=== PATIENT | female | born 1995 | race Caucasian/White ===

== ENCOUNTER 2017-03-20 01:22 | Inpatient (IN) | payer OTHER ==
[2017-03-20] VITALS (17 sets, daily range): BP systolic 92–123; BP diastolic 23–66; PULSE 90–123; RESP 16–18; TEMP 98.6–100.8; O2SAT 96–100
[2017-03-20 01:51] LABS: AUTOMATED NEUTROPHIL # 9.1 TH/MM3 (1.8-7.7); BASOPHIL # 0.1 TH/MM3 (0-0.2); BASOPHIL % 0.5 % (0.0-2.0); EOSINOPHIL # 0.1 TH/MM3 (0-0.4); EOSINOPHIL % 0.4 % (0.0-4.0); HEMO FLAGS DIFF FINAL; I-STAT POTASSIUM 3.4 MMOL/L (3.5-4.9); I-STAT SODIUM 144 MMOL/L (138-146); LYMPH % 23.3 % (9.0-44.0); LYMPHOCYTE # 3.1 TH/MM3 (1.0-4.8); MEAN CELL VOLUME 93.1 FL (80.0-100.0); MEAN CORPUSCULAR HEMOGLOBIN 31.7 PG (27.0-34.0); MEAN CORPUSCULAR HGB CONC 34.1 % (32.0-36.0); MONO % 7.7 % (0.0-8.0); NEUT % 68.1 % (16.0-70.0); PLATELET COUNT 212 TH/MM3 (150-450); RED BLOOD COUNT 4.51 MIL/MM3 (4.00-5.30); WHITE BLOOD COUNT 13.3 TH/MM3 (4.0-11.0)
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
[2017-03-20 02:11] LABS: BETA HCG QUANT LESS THAN 1 MIU/ML (0-5)
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
[2017-03-20 02:13] LABS: ALCOHOL 293 MG/DL (0-5)
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
[2017-03-20] MEDS ORDERED: fentaNYL DRIP 250 ML IV PRN (02:16)
[2017-03-20] MEDS ORDERED: PROPOFOL 1000 MG/100 ML INJ 100 ML IV PRN (02:16)
[2017-03-20] MEDS ORDERED: DIPHTH/TETANUS/ACEL PERTUSSIS (BOOSTER) 0.5 ML VIAL/PFS IM ONE (02:17)
[2017-03-20 02:22] LABS: APTT (PATIENT) 21.9 SEC (24.3-30.1); INTERNATIONAL NORMALIZED RATIO 1.1 RATIO; PROTHROMBIN TIME - PATIENT 11.8 SEC (9.8-11.6)
[2017-03-20] MEDS ORDERED: ONDANSETRON HCL 4 MG/2 ML VIAL IV PRN (02:30)
[2017-03-20] MEDS ORDERED: NALOXONE HCL 0.4 MG/ML AMP IV PRN (02:30)
[2017-03-20] MEDS ORDERED: levETIRAcetam INJ 500 MG in SODIUM CHLORIDE 0.9% INJ 100 ML IV SCH (02:30)
[2017-03-20] MEDS ORDERED: Post-op Orders (for Pharmacy) MISC XX ONE (02:30)
[2017-03-20] MEDS ORDERED: SODIUM CHLORIDE 0.9% FLUSH 10 ML FLUSH IV FLUSH PRN (02:30)
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
[2017-03-20] MEDS ORDERED: fentaNYL 2,500 MCG/NS 250 ML IV PRN (02:45)
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
[2017-03-20] MEDS: SODIUM CHLOR 0.9% 1000 ML INJ 1,000 ML IV SCH ×2 (02:46→12:45)
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
[2017-03-20] MEDS ORDERED: IOHEXOL 350 MG/ML 10 ML VIAL (for RAD DIAG) IVCONTRAST ONE (03:12)
[2017-03-20 03:29] LABS: BLOOD GAS BASE EXCESS -5.5 mmol/L (-2-2); BLOOD GAS HCO3 18 mmol/L (22-26); BLOOD GAS METHEMOGLOBIN 0.9 % (0-2); BLOOD GAS O2 HGB SATURATION 98 % (90-100); BLOOD GAS OXYGEN CONTENT 17.9 Vol % (12.0-20.0); BLOOD GAS PCO2 30 mmHg (38-42); BLOOD GAS PO2 543 mmHg (61-120); CRITICAL VALUE NO; DRAW SITE RT BRACHIAL; FIO2 100 %; NUMBER OF ARTERIAL PUNCTURES 1; OXYGEN DEVICE VENTILATOR; STAT NO; TEMP CORR TO 98.6
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
[2017-03-20] MEDS: levETIRAcetam INJ 500 MG in SODIUM CHLORIDE 0.9% INJ 100 ML IV SCH ×2 (04:27→14:01)
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
[2017-03-20] MEDS ORDERED: PANTOPRAZOLE SODIUM 40 MG VIAL IV SCH (06:00)
[2017-03-20] MEDS: PROPOFOL 1000 MG/100 ML IV PRN ×2 (06:06→17:19)
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
[2017-03-20] MEDS: CHLORHEXIDINE 0.12% (ORAL KIT) 15 ML CUP MT SCH ×2 (07:30→20:00)
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
[2017-03-20] MEDS ORDERED: SODIUM PHOSPHATE INJ 30 MMOL in SODIUM CHLOR 0.9% 250 ML INJ 240 ML IV PRN (08:00)
[2017-03-20] MEDS ORDERED: MAGNESIUM OXIDE 400 MG TAB PO PRN (08:00)
[2017-03-20] MEDS ORDERED: POTASSIUM PHOSPHATE MONOBASIC 500 MG TAB PO/TUBE PRN (08:00)
[2017-03-20] MEDS ORDERED: POTASSIUM PHOSPHATE INJ 30 MMOL in SODIUM CHLOR 0.9% 250 ML INJ 250 ML IV PRN (08:00)
[2017-03-20] MEDS ORDERED: MAGNESIUM SULFATE INJ 4 GM in SODIUM CHLORIDE 0.9% INJ 92 ML IV PRN (08:00)
[2017-03-20] MEDS ORDERED: POTASSIUM CHLOR 40 MEQ PREMIX 100 ML IV-CENTRAL PRN ×2 (08:00)
[2017-03-20] MEDS ORDERED: MAGNESIUM SULFATE INJ 2 GM in SODIUM CHLORIDE 0.9% INJ 96 ML IV PRN (08:00)
[2017-03-20] MEDS ORDERED: POTASSIUM CHLOR 20 MEQ PREMIX 100 ML IV PRN (08:00)
[2017-03-20] MEDS ORDERED: POTASSIUM CHLORIDE 25 MEQ EFFERVESCENT TAB PO PRN (08:00)
[2017-03-20] MEDS ORDERED: POTASSIUM PHOSPHATE MONOBASIC 500 MG TAB PO PRN (08:00)
[2017-03-20] MEDS ORDERED: BISACODYL 10 MG SUPP RECTAL PRN (08:00)
[2017-03-20] MEDS ORDERED: RESP: ALBUTEROL 2.5 MG/IPRATROPIUM 0.5 MG NEB (PRN) NEB (08:00)
[2017-03-20] MEDS ORDERED: DOCUSATE SODIUM 100 MG CAP PO SCH (09:00)
--- NOTE | 2017-03-20 10:28 | RADRPT ---
EXAM DATE/TIME: 03/20/2017 09:46 [facility] COMPARISON: CHEST SINGLE AP, March 20, 2017, 1:32. INDICATIONS : Shortness of breath. MEDICAL HISTORY : Non-responsive. SURGICAL HISTORY : Non-responsive. ENCOUNTER: Subsequent ACUITY: 1 day PAIN SCORE: Non-responsive. LOCATION: Bilateral chest FINDINGS: AP nasogastric tube are in good position. The lungs are clear. The heart and pulmonary vascularity a re normal. The portion of the bony skeleton visualized is unremarkable. CONCLUSION: Stable chest. Francisco Jim MD FACR on March 20, 2017 at 10:26 Board Certified Radiologist. This report was verified electronically.
[2017-03-20] MEDS: SODIUM CHLORIDE 0.9% FLUSH 10 ML FLUSH IV FLUSH SCH ×2 (11:05→20:23)
[2017-03-20] MEDS: DOCUSATE SODIUM 50 MG/SENNA 8.6 MG TAB PO SCH ×2 (11:06→20:23)
[2017-03-20] MEDS: LACTULOSE SYRUP 20 GM/30 ML CUP PO SCH (11:06)
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
[2017-03-20 18:14] LABS: ALT (GPT) 60 U/L (10-53); ANION GAP 16 MEQ/L (5-15); AST (GOT) 105 U/L (15-37); BLOOD UREA NITROGEN 3 MG/DL (7-18); CHLORIDE 110 MEQ/L (98-107); GLOMERULAR FILTRATION RATE 47 ML/MIN (>89); MAGNESIUM 2.5 MG/DL (1.5-2.5); POTASSIUM 3.6 MEQ/L (3.5-5.1); SODIUM (NA) 140 MEQ/L (136-145)
[2017-03-20 18:17] LABS: ALKALINE PHOSPHATASE 73 U/L (45-117); TOTAL BILIRUBIN ADULT 0.3 MG/DL (0.2-1.0)
--- NOTE | 2017-03-20 19:04 | RADRPT ---
EXAM DATE/TIME: 03/20/2017 16:27 [facility] COMPARISON: CT BRAIN W/O CONTRAST, March 20, 2017, 1:46. INDICATIONS : Traumatic brain injury. RADIATION DOSE: 35.18 CTDIvol (mGy) MEDICAL HISTORY : Non-responsive. SURGICAL HISTORY : Non-responsive. ENCOUNTER: Initial ACUITY: 1 day PAIN SCALE: Non-responsive LOCATION: Cranial TECHNIQUE: Multiple contiguous axial images were obtained of the head. Using automated exposure control and adjustment of the mA and/or kV according to patient size, radiation dose was kept as low as reasonably achievable to obtain optimal diagnostic quality images. DICOM format image data is av ailable electronically for review and comparison. FINDINGS: There continues to be increased density seen in the fourth ventricle likely related to focal hemorrhage. There also appears to be a small area of focal hemorrhage in the right ambient cis tern. There is subarachnoid hemorrhage. There is suggestion of small areas of subarachnoid hemorrha ge seen over the frontal lobes bilaterally. There is a small area of suspected parenchymal hemorrhag e at the inferior right frontal lobe. Significant midline shift is not seen. The ventricles and jessie ical sulci are within normal limits. The basal cisterns are open. CONCLUSION: Persistent suspected small area of interventricular hemorrhage at the fourth ventricl e and subarachnoid hemorrhage seen at the right ambient cistern and likely over the frontal lobes. T here is also a small area of parenchymal hemorrhage seen at the right frontal lobe. Significant mass effect is not seen. Alhaji Mclean MD on March 20, 2017 at 18:21 Board Certified Radiologist. This report was verified electronically.
[2017-03-20 19:41] LABS: HEMATOCRIT 36.2 % (35.0-46.0); MEAN CELL VOLUME 91.9 FL (80.0-100.0); MEAN CORPUSCULAR HEMOGLOBIN 30.7 PG (27.0-34.0); MEAN CORPUSCULAR HGB CONC 33.4 % (32.0-36.0); PLATELET COUNT 130 TH/MM3 (150-450); RED BLOOD COUNT 3.94 MIL/MM3 (4.00-5.30); RED CELL DISTRIBUTION WIDTH 13.3 % (11.6-17.2); REVIEW FLAG FINAL; WHITE BLOOD COUNT 8.2 TH/MM3 (4.0-11.0)
[2017-03-20] MEDS ORDERED: ACETAMINOPHEN 1000 MG/100 ML VIAL IV PRN (19:45)
[2017-03-20] MEDS: REMOVE OLD PATCH T-DERMAL SCH (20:00)
[2017-03-20] MEDS ORDERED: fentaNYL 25 MCG/HR PATCH T-DERMAL SCH (20:00)
[2017-03-20 20:16] LABS: ALKALINE PHOSPHATASE 62 U/L (45-117); ALT (GPT) 55 U/L (10-53); ANION GAP 8 MEQ/L (5-15); AST (GOT) 118 U/L (15-37); BICARBONATE 24.3 MEQ/L (21.0-32.0); BLOOD UREA NITROGEN 5 MG/DL (7-18); CHLORIDE 112 MEQ/L (98-107); GLOMERULAR FILTRATION RATE 80 ML/MIN (>89); MAGNESIUM 1.8 MG/DL (1.5-2.5); POTASSIUM 3.3 MEQ/L (3.5-5.1); SODIUM (NA) 144 MEQ/L (136-145)
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
[2017-03-20] MEDS: RESP: ALBUTEROL 2.5 MG/IPRATROPIUM 0.5 MG NEB (SCH) NEB ×2 (21:16→23:31)
[2017-03-20] MEDS: POTASSIUM CHLOR 20 MEQ PREMIX 100 ML IV PRN (22:21)
[2017-03-21] VITALS (11 sets, daily range): BP systolic 98–132; BP diastolic 59–82; PULSE 77–133; RESP 16–21; TEMP 97.7–99; O2SAT 95–100
[2017-03-21] MEDS: POTASSIUM CHLOR 20 MEQ PREMIX 100 ML IV PRN (00:50)
[2017-03-21] MEDS: RESP: ALBUTEROL 2.5 MG/IPRATROPIUM 0.5 MG NEB (SCH) NEB ×3 (03:45→12:37)
[2017-03-21] MEDS: levETIRAcetam INJ 500 MG in SODIUM CHLORIDE 0.9% INJ 100 ML IV SCH ×2 (04:45→15:20)
[2017-03-21 05:33] LABS: AUTOMATED NEUTROPHIL # 5.3 TH/MM3 (1.8-7.7); BASOPHIL % 0.3 % (0.0-2.0); EOSINOPHIL % 0.3 % (0.0-4.0); HEMATOCRIT 32.6 % (35.0-46.0); HEMO FLAGS DIFF FINAL; LYMPH % 8.8 % (9.0-44.0); LYMPHOCYTE # 0.6 TH/MM3 (1.0-4.8); MEAN CELL VOLUME 92.1 FL (80.0-100.0); MEAN CORPUSCULAR HEMOGLOBIN 30.8 PG (27.0-34.0); MEAN CORPUSCULAR HGB CONC 33.4 % (32.0-36.0); MONO % 14.3 % (0.0-8.0); NEUT % 76.3 % (16.0-70.0); PLATELET COUNT 108 TH/MM3 (150-450); RED BLOOD COUNT 3.54 MIL/MM3 (4.00-5.30); RED CELL DISTRIBUTION WIDTH 13.2 % (11.6-17.2)
[2017-03-21 06:01] LABS: BICARBONATE 22.9 MEQ/L (21.0-32.0); POTASSIUM 3.5 MEQ/L (3.5-5.1)
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
[2017-03-21] MEDS: LACTULOSE SYRUP 20 GM/30 ML CUP PO SCH (08:03)
[2017-03-21] MEDS: DOCUSATE SODIUM 50 MG/SENNA 8.6 MG TAB PO SCH ×2 (08:03→20:47)
[2017-03-21] MEDS: SODIUM CHLORIDE 0.9% FLUSH 10 ML FLUSH IV FLUSH SCH ×2 (08:03→20:48)
[2017-03-21] MEDS: oxyCODONE/ACETAMINOPHEN 5 MG/325 MG TAB PO PRN ×5 (08:04→23:54)
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
[2017-03-21] MEDS: METHOCARBAMOL 500 MG TAB PO SCH ×3 (10:25→20:46)
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
[2017-03-21] MEDS ORDERED: HYDROmorphone HCL PF 1 MG/ML VIAL IV PUSH PRN (17:45)
[2017-03-22 01:59] VITALS: O2SAT 98
[2017-03-22] MEDS: levETIRAcetam INJ 500 MG in SODIUM CHLORIDE 0.9% INJ 100 ML IV SCH (03:43)
[2017-03-22] MEDS: oxyCODONE/ACETAMINOPHEN 5 MG/325 MG TAB PO PRN ×5 (04:39→21:33)
[2017-03-22 04:56] VITALS: BP 112/70; PULSE 88; RESP 16; TEMP 98.1; O2SAT 97
[2017-03-22] MEDS: METHOCARBAMOL 500 MG TAB PO SCH ×3 (06:18→21:32)
[2017-03-22] MEDS ORDERED: LACTULOSE SYRUP 20 GM/30 ML CUP PO PRN (08:00)
[2017-03-22 08:57] VITALS: BP 102/62; PULSE 109; RESP 18; TEMP 98; O2SAT 94
[2017-03-22] MEDS: levETIRAcetam 500 MG TAB PO SCH ×2 (08:57→21:32)
[2017-03-22] MEDS: SODIUM CHLORIDE 0.9% FLUSH 10 ML FLUSH IV FLUSH SCH ×2 (08:58→21:31)
[2017-03-22] MEDS: DOCUSATE SODIUM 50 MG/SENNA 8.6 MG TAB PO SCH ×2 (08:59→21:32)
--- NOTE | 2017-03-22 12:13 | HHI.PR ---
Subjective Subjective Notes Ambulated halls yesterday with PT Reports more neck pain today Objective Vitals/I&O Vital Signs Date Time Temp Pulse Resp B/P (MAP) Pulse Ox O2 Delivery O2 Flow Rate FiO2 03/22/17 09:04 Room Air 03/22/17 08:57 98.0 109 18 102/62 (75) 94 03/21/17 12:41 21 Labs Laboratory Tests Test 03/20/17 01:25 03/20/17 02:30 03/20/17 03:15 03/20/17 19:01 Bedside Hemoglobin 14.3 G/DL Bedside Hematocrit 42.0 % Prothrombin Time 11.8 SEC Prothromb Time International Ratio 1.1 RATIO Activated Partial Thromboplast Time 21.9 SEC Bedside Sodium 144 MMOL/L Bedside Potassium 3.4 MMOL/L Bedside Chloride 108 MMOL/L Bedside Blood Urea Nitrogen LESS THAN 3 MG/DL Bedside Creatinine 1.0 MG/DL Bedside Glucose 121 MG/DL Human Chorionic Gonadotropin, Quant LESS THAN 1 MIU/ML Ethyl Alcohol Level 293 MG/DL Urine Opiates Screen NEG Urine Barbiturates Screen NEG Urine Amphetamines Screen NEG Urine Benzodiazepines Screen NEG Urine Cocaine Screen NEG Urine Cannabinoids Screen NEG Blood Gas Puncture Site RT BRACHIAL Blood Gas Patient Temperature 98.6 Blood Gas HCO3 18 mmol/L Blood Gas Base Excess -5.5 mmol/L Blood Gas Oxygen Saturation 98 % Arterial Blood pH 7.41 Arterial Blood Partial Pressure CO2 30 mmHg Arterial Blood Partial Pressure O2 543 mmHg Arterial Blood Oxygen Content 17.9 Vol % Arterial Blood Carboxyhemoglobin 1.0 % Arterial Blood Methemoglobin 0.9 % Blood Gas Hemoglobin 12.0 G/DL Oxygen Delivery Device VENTILATOR Blood Gas Ventilator Setting SEE COMMENT Blood Gas Inspired Oxygen 100 % Blood Urea Nitrogen 5 MG/DL Creatinine 0.64 MG/DL Random Glucose 101 MG/DL Total Protein 6.4 GM/DL Albumin 3.8 GM/DL Calcium Level 8.0 MG/DL Phosphorus Level 3.5 MG/DL Magnesium Level 1.8 MG/DL Alkaline Phosphatase 62 U/L Aspartate Amino Transf (AST/SGOT) 118 U/L Alanine Aminotransferase (ALT/SGPT) 55 U/L Total Bilirubin 1.0 MG/DL Sodium Level 144 MEQ/L Potassium Level 3.3 MEQ/L Chloride Level 112 MEQ/L Carbon Dioxide Level 24.3 MEQ/L Test 03/21/17 04:49 White Blood Count 7.0 TH/MM3 Red Blood Count 3.54 MIL/MM3 Hemoglobin 10.9 GM/DL Hematocrit 32.6 % Mean Corpuscular Volume 92.1 FL Mean Corpuscular Hemoglobin 30.8 PG Mean Corpuscular Hemoglobin Concent 33.4 % Red Cell Distribution Width 13.2 % Platelet Count 108 TH/MM3 Mean Platelet Volume 8.0 FL Neutrophils (%) (Auto) 76.3 % Lymphocytes (%) (Auto) 8.8 % Monocytes (%) (Auto) 14.3 % Eosinophils (%) (Auto) 0.3 % Basophils (%) (Auto) 0.3 % Neutrophils # (Auto) 5.3 TH/MM3 Lymphocytes # (Auto) 0.6 TH/MM3 Monocytes # (Auto) 1.0 TH/MM3 Eosinophils # (Auto) 0.0 TH/MM3 Basophils # (Auto) 0.0 TH/MM3 CBC Comment DIFF FINAL Differential Comment Blood Urea Nitrogen 6 MG/DL Creatinine 0.60 MG/DL Random Glucose 118 MG/DL Calcium Level 7.8 MG/DL Sodium Level 144 MEQ/L Potassium Level 3.5 MEQ/L Chloride Level 112 MEQ/L Carbon Dioxide Level 22.9 MEQ/L Anion Gap 9 MEQ/L Estimat Glomerular Filtration Rate 86 ML/MIN Radiology Last Impressions Cervical Spine X-Ray 03/21/17 0000 Signed Impressions: Service Date/Time: Tuesday, March 21, 2017 13:51 - CONCLUSION: Normal alignment . Faint lucency posterior aspect C5 elements at the base and one in the lamina toward the base of the spinous process correlating with CT scan. Romeo Hampton MD Head CT 03/20/17 1400 Signed Impressions: Service Date/Time: Monday, March 20, 2017 16:27 - CONCLUSION: Persistent suspected small area of interventricular hemorrhage at the fourth ventricle and subarachnoid hemorrhage seen at the right ambient cistern and likely over the frontal lobes. There is also a small area of parenchymal hemorrhage seen at the right frontal lobe. Significant mass effect is not seen. Alhaji Mclean MD Thoracic Spine CT 03/20/17 0130 Signed Impressions: Service Date/Time: Monday, March 20, 2017 01:49 - CONCLUSION: No acute thoracic spine abnormality is identified. Alhaji Vasquez MD Pelvis X-Ray 03/20/17129 Signed Impressions: Service Date/Time: Monday, March 20, 2017 01:32 - CONCLUSION: Minimally displaced left superior and inferior pubic rami fractures. Alhaji Vasquez MD Maxillofacial CT 03/20/17129 Signed Impressions: Service Date/Time: Monday, March 20, 2017 01:48 - CONCLUSION: No maxillofacial fracture is identified. Alhaji Vasquez MD Lumbar Spine CT 03/20/17129 Signed Impressions: Service Date/Time: Monday, March 20, 2017 01:49 - CONCLUSION: 1. Minimally displaced left L3 transverse process fracture. 2. Left sacral ala fracture. Alhaji Vasquez MD Chest X-Ray 03/20/17129 Signed Impressions: Service Date/Time: Monday, March 20, 2017 01:32 - CONCLUSION: No acute abnormality is identified. Alhaji Vasquez MD Chest CT 03/20/17129 Signed Impressions: Service Date/Time: Monday, March 20, 2017 01:52 - CONCLUSION: 1. Suspected small retrosternal/anterior mediastinal hematoma from uncertain etiology. No fracture or acute vascular injury is identified. Additionally, there is trace air in the retrosternal region. Suggest followup chest CT to assess for change. 2. No fracture is identified. However, there is significant respiratory motion artifact and rib fractures could easily be missed. Alhaji Vasquez MD Cervical Spine CT 03/20/17129 Signed Impressions: Service Date/Time: Monday, March 20, 2017 01:48 - CONCLUSION: 1. There is a nondisplaced oblique fracture through the right C5 lamina. 2. No other acute finding is identified. Examination quality degraded by motion artifact. Alhaji Vasquez MD Abdomen/Pelvis CT 03/20/17129 Signed Impressions: Service Date/Time: Monday, March 20, 2017 01:52 - CONCLUSION: 1. Acute displaced left superior and inferior pubic rami fractures. 2. There are fractures extending through the left sacral ala. Alhaji Vasquez MD Narrative Exam GENERAL: 22 year old well-nourished female OOB in chair with soft cervical collar in place. SKIN: Warm and dry. Facial abrasions noted. HEAD: Normocephalic. ENT: No nasal bleeding or discharge. Mucous membranes pink and moist. NECK: Trachea midline. No JVD. CARDIOVASCULAR: Regular rate and rhythm. RESPIRATORY: No accessory muscle use. Clear to auscultation. Breath sounds equal bilaterally. GASTROINTESTINAL: Abdomen soft, non-tender, nondistended. + BS MUSCULOSKELETAL: Extremities without clubbing, cyanosis, or edema. No obvious deformities. MAEW. NEUROLOGICAL: Awake and alert. Normal speech. A/P Assessment and Plan INJURIES: Small IVH SAH in frontal lobes LEFT inferior and superior pubic rami fxs (non-op) Sacral fx (non-op) C5 lamina fx LEFT L3 transverse process fx 03/20: Extubated Diet: Regular Pulm: IS Pain: Fentanyl patch, Percocet, Dilaudid IV, Robaxin Activity: OOB. PT and OT ordered. (WBAT LLE) Bowel: Mayte-colace 2 tab, PRN Lactulose. LBM 0 DVT: SCDs IVH, SAH in frontal lobes, C5 lamina fx Neurosurgery consulted PO Kel for seizure prophylaxis Continue cervical collar Neuro checks F/U CT Brain Flexion/Extension x-ray LEFT inferior and superior pubic rami fxs, Sacral fx Orthopedics consulted Non-operative management WBAT LLE OOB-PT- ambulating well with PT Pain control LEFT L3 transverse process fx Non-operative management Pain control OOB-PT Plan of care discussed with patient at bedside. Case management consulted to assist with discharge planning. Plan to DC when cleared by NS. Yesi Calle Mar 22, 2017 12:13
[2017-03-22 12:46] VITALS: BP_SYST 119; BP_SYST 133; BP_DIAS 67; BP_DIAS 68; PULSE 106; PULSE 60; RESP 16; RESP 18; TEMP 98.2; O2SAT 95; O2SAT 99
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
[2017-03-22 16:58] VITALS: BP 116/68; PULSE 87; RESP 18; TEMP 98; O2SAT 98
[2017-03-22] MEDS: REMOVE OLD PATCH T-DERMAL SCH (21:34)
[2017-03-22 22:36] VITALS: BP 107/75; PULSE 96; RESP 18; TEMP 98.3; O2SAT 100
[2017-03-23] MEDS: oxyCODONE/ACETAMINOPHEN 5 MG/325 MG TAB PO PRN ×4 (01:16→16:37)
[2017-03-23 01:31] VITALS: BP 113/75; PULSE 91; RESP 18; TEMP 98.4; O2SAT 100
[2017-03-23] MEDS: METHOCARBAMOL 500 MG TAB PO SCH ×2 (05:08→13:13)
[2017-03-23 06:12] VITALS: BP 101/61; PULSE 87; RESP 17; TEMP 98; O2SAT 100
[2017-03-23 08:00] VITALS: BP 104/57; PULSE 100; RESP 18; TEMP 98.1; O2SAT 97
[2017-03-23] MEDS: levETIRAcetam 500 MG TAB PO SCH (09:58)
[2017-03-23] MEDS: DOCUSATE SODIUM 50 MG/SENNA 8.6 MG TAB PO SCH (10:00)
[2017-03-23] MEDS: SODIUM CHLORIDE 0.9% FLUSH 10 ML FLUSH IV FLUSH SCH (10:00)
[2017-03-23] MEDS ORDERED: WALKER WHEELS/F1 MIS (10:16)
[2017-03-23] MEDS ORDERED: METH500T3 PO (10:18)
[2017-03-23] MEDS ORDERED: SENN1TAB PO (10:18)
[2017-03-23] MEDS ORDERED: OXYC1TAB63 PO (11:28)
[2017-03-23] MEDS ORDERED: fentaNYL 25 MCG/HR PATCH T-DERMAL ONE (11:30)
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
[2017-03-23] MEDS ORDERED: LACTULOSE SYRUP 20 GM/30 ML CUP PO ONE (11:45)
[2017-03-23 12:00] VITALS: BP 112/62; PULSE 99; RESP 18; TEMP 98.4; O2SAT 94
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
== END 2017-03-23 16:57 | disposition home or self-care (01) | DRG 963 ==
LOC: NEPI 01:22 → NEDA 01:47 → EDBD 01:47 → N03B 02:09 → N05A 03-21 14:03
PROVIDERS: ADMIT Surgery; ATTEND Surgery
PROC: 0BH17EZ Insertion of Endotracheal Airway into Trachea, Via Natural or Artificial Opening (ICD-10-PCS; principal; 2017-03-20)
PROC: 5A1945Z Respiratory Ventilation, 24-96 Consecutive Hours (ICD-10-PCS; 2017-03-20)
DX: S06.6X9A Traumatic subarachnoid hemorrhage with loss of consciousness of unspecified duration, initial encounter (principal); J96.00 Acute respiratory failure, unspecified whether with hypoxia or hypercapnia; S32.592A Other specified fracture of left pubis, initial encounter for closed fracture; S06.379A Contusion, laceration, and hemorrhage of cerebellum with loss of consciousness of unspecified duration, initial encounter; S12.400A Unspecified displaced fracture of fifth cervical vertebra, initial encounter for closed fracture; S32.058A Other fracture of fifth lumbar vertebra, initial encounter for closed fracture; S32.10XA Unspecified fracture of sacrum, initial encounter for closed fracture; R40.2431 Glasgow coma scale score 3-8, in the field [EMT or ambulance]; V57.6XXA Passenger in pick-up truck or van injured in collision with fixed or stationary object in traffic accident, initial encounter; Y92.410 Unspecified street and highway as the place of occurrence of the external cause; F01.50 Vascular dementia, unspecified severity, without behavioral disturbance, psychotic disturbance, mood disturbance, and anxiety
CPT/HCPCS: 31500; 36600; 51702; 70450; 70486; 71010; 71260; 72020; 72125; 72128; 72131; 72170; 74177; 80048; 80053; 80307; 82435; 82565; 82805; 82947; 83735; 84100; 84132; 84295; 84520; 84702; 85025; 85027; 85610; 85730; 86850; 86900; 86901; 90471; 90715; 93306; 94002; 94640; 94664; 96374; 99291; C9113; G0390; J0131; J1170; J1953; J3010; J3480; J7030; L0120; L0172; Q9967